=== PATIENT | female | born 1975 | race Two or more races ===

== ENCOUNTER 2019-07-07 11:00 | Emergency (ER) | payer BC ==
[~2019-07-07] VITALS: Ht 157.5 cm; Wt 56.2 kg
[2019-07-07 12:21] LABS: Urine Bacteria FEW /hpf (None Seen); Urine Blood 2+ /uL (Negative); Urine Specific Gravity 1.006 (1.001-1.035); Urine WBC 290 /hpf (0 - 5); Urine WBC Clumps PRESENT /hpf (None Seen)
[2019-07-07 13:00] VITALS: BP 127/78
[2019-07-07] MEDS ORDERED: SODIUM CHLORIDE 0.9% 1,000 ML IV ONE (13:01)
[2019-07-07] MEDS ORDERED: cefTRIAXone 1GM/50ML D5W 50 ML IV ONE (13:15)
[2019-07-07] MEDS ORDERED: KETOROLAC TROMETH 30 MG/ML 1ML VIAL IV ONE (13:15)
== END 2019-07-07 15:22 | disposition home or self-care (01) ==
LOC: EDBD 11:00 → ER 11:00
DX: N12 Tubulo-interstitial nephritis, not specified as acute or chronic (principal); Z90.49 Acquired absence of other specified parts of digestive tract; Z90.710 Acquired absence of both cervix and uterus
CPT/HCPCS: 74176; 81001; 96365; 96375; 99284; J0696; J1885; J7030

== ENCOUNTER 2021-02-03 19:23 | Emergency (ER) | payer BC ==
[~2021-02-03] VITALS: Ht 157.5 cm; Wt 59.9 kg
[2021-02-03 21:05] VITALS: BP 117/75
[2021-02-03] MEDS ORDERED: KETOROLAC TROMETH 60MG/2ML VIAL IM ONE (22:30)
== END 2021-02-03 22:57 | disposition home or self-care (01) ==
LOC: ER 19:23
DX: S16.1XXA Strain of muscle, fascia and tendon at neck level, initial encounter (principal); M54.5 Low back pain; M54.6 Pain in thoracic spine; Z90.49 Acquired absence of other specified parts of digestive tract; Z90.710 Acquired absence of both cervix and uterus; V49.9XXA Car occupant (driver) (passenger) injured in unspecified traffic accident, initial encounter; Y93.89 Activity, other specified; Y92.89 Other specified places as the place of occurrence of the external cause; Y99.8 Other external cause status
CPT/HCPCS: 70450; 72070; 72100; 72125; 96372; 99285; J1885

== ENCOUNTER → 2021-03-06 | Day surgery (SDC) | payer BC ==
[~2021-03-06] VITALS: Ht 157.5 cm; Wt 60.3 kg
[~2021-03-06] MED LIST: BUPIVACAINE 0.25% INJ 50ML VIAL ONE; CONJ ESTROGENS 0.625MG/GM VAG CRM 30GM PV ONE; DexAMETHasone SOD PHOS 10MG/1ML VIAL INJ ONE; ESTR0.3T TD; HYDROmorphone HCL 2 MG/ML VL IV PRN; IBUP800T27 PO; KETOROLAC TROMETH 30 MG/ML 1ML VIAL IV ONE; LABETALOL HCL 5 MG/ML 4ML SYRINGE IV PRN; LIDOCAINE 1%-Mpf/Epinephrine 1:200,000 ONE; MEPERIDINE HCL (50 MG/ML) 1 ML VIAL ONE; MIDAZOLAM HCL 1MG/1ML-2 ML VIAL IV PRN; MIDAZOLAM HCL 1MG/1ML-2 ML VIAL ONE; MORPHINE SULFATE 4 MG/ML SYR/VIAL IV PRN; ONDANSETRON HCL 4 MG/2 ML VIAL IV ONE; ONDANSETRON HCL 4 MG/2 ML VIAL IV PRN; PHENYLEPHRINE HCL 10 MG/ML VL IV ONE; PROPOFOL 10 MG/ML 20 ML IV ONE; ceFAZolin 1GM VL ONE; ceFAZolin 1GM/50ML 100 ML IV ONE; diphenhdrAMINE HCL 50 MG/1 ML VL ONE; ePHEDrine SULFATE 50 MG/ML AMP IV PRN; fentaNYL CITRATE 100 MCG/2 ML VL ONE; hydrALAZINE HCL 20 MG/ML VL IV PRN
[2021-03-06 10:30] VITALS: BP 110/61
== END | disposition home or self-care (01) ==
LOC: SUR 07:29
PROVIDERS: ATTEND Obstetrics & Gynecology
DX: N81.11 Cystocele, midline (principal); G89.29 Other chronic pain; M19.90 Unspecified osteoarthritis, unspecified site; N39.3 Stress incontinence (female) (male); N39.0 Urinary tract infection, site not specified; Z68.24 Body mass index [BMI] 24.0-24.9, adult; Z20.822 Contact with and (suspected) exposure to COVID-19; Z98.890 Other specified postprocedural states; Z90.710 Acquired absence of both cervix and uterus; Z90.49 Acquired absence of other specified parts of digestive tract; Z79.899 Other long term (current) drug therapy
CPT/HCPCS: 57240; 57288; C1771; J0690; J1100; J1200; J2001; J2175; J2250; J2370; J2405; J2704; J3010; J3490; U0003

== ENCOUNTER → 2023-04-29 | Outpatient (CLI) | payer OTHER ==
[~2023-04-29] MED LIST changes: -BUPIVACAINE 0.25% INJ 50ML VIAL ONE; -CONJ ESTROGENS 0.625MG/GM VAG CRM 30GM PV ONE; -DexAMETHasone SOD PHOS 10MG/1ML VIAL INJ ONE; -HYDROmorphone HCL 2 MG/ML VL IV PRN; +IBUP-1456 PO; -IBUP800T27 PO; -KETOROLAC TROMETH 30 MG/ML 1ML VIAL IV ONE; -LABETALOL HCL 5 MG/ML 4ML SYRINGE IV PRN; -LIDOCAINE 1%-Mpf/Epinephrine 1:200,000 ONE; -MEPERIDINE HCL (50 MG/ML) 1 ML VIAL ONE; -MIDAZOLAM HCL 1MG/1ML-2 ML VIAL IV PRN; -MIDAZOLAM HCL 1MG/1ML-2 ML VIAL ONE; -MORPHINE SULFATE 4 MG/ML SYR/VIAL IV PRN; -ONDANSETRON HCL 4 MG/2 ML VIAL IV ONE; -ONDANSETRON HCL 4 MG/2 ML VIAL IV PRN; -PHENYLEPHRINE HCL 10 MG/ML VL IV ONE; -PROPOFOL 10 MG/ML 20 ML IV ONE; -ceFAZolin 1GM VL ONE; -ceFAZolin 1GM/50ML 100 ML IV ONE; -diphenhdrAMINE HCL 50 MG/1 ML VL ONE; -ePHEDrine SULFATE 50 MG/ML AMP IV PRN; -fentaNYL CITRATE 100 MCG/2 ML VL ONE; -hydrALAZINE HCL 20 MG/ML VL IV PRN
[2023-05-02 08:51] LABS: Hepatitis B Surface Antibody Negative (Negative)
== END | disposition home or self-care (01) ==
LOC: LAB 15:51
PROVIDERS: ATTEND Family Medicine
DX: S69.91XA Unspecified injury of right wrist, hand and finger(s), initial encounter (principal); W46.1XXA Contact with contaminated hypodermic needle, initial encounter; Y93.89 Activity, other specified; Y92.89 Other specified places as the place of occurrence of the external cause; Y99.8 Other external cause status
CPT/HCPCS: 86701; 86706; 86803; 87340

== ENCOUNTER → 2023-06-18 | Outpatient (CLI) | payer OTHER ==
[2023-06-20 11:24] LABS: Hepatitis B Surface Antibody Negative (Negative)
[2023-06-20 12:48] LABS: Hepatitis B Surface Antigen Negative (Negative)
== END | disposition home or self-care (01) ==
LOC: LAB 13:35
PROVIDERS: ATTEND Family Medicine
DX: S69.91XA Unspecified injury of right wrist, hand and finger(s), initial encounter (principal); Z77.21 Contact with and (suspected) exposure to potentially hazardous body fluids; X58.XXXA Exposure to other specified factors, initial encounter; Y93.89 Activity, other specified; Y92.89 Other specified places as the place of occurrence of the external cause; Y99.8 Other external cause status
CPT/HCPCS: 36415; 86703; 86706; 86803; 87340

== ENCOUNTER → 2023-07-23 | Outpatient (CLI) | payer OTHER ==
[2023-07-25 11:10] LABS: Hepatitis B Surface Antibody Negative (Negative)
[2023-07-25 11:22] LABS: Hepatitis B Surface Antigen Negative (Negative)
== END | disposition home or self-care (01) ==
LOC: LAB 13:33
PROVIDERS: ATTEND Family Medicine
DX: Z77.21 Contact with and (suspected) exposure to potentially hazardous body fluids (principal)
CPT/HCPCS: 36415; 86703; 86706; 86803; 87340

== ENCOUNTER → 2023-10-28 | Outpatient (CLI) | payer OTHER ==
[2023-10-28 13:19] LABS: Hepatitis B Surface Antibody Negative (Negative)
[2023-10-28 13:31] LABS: Hepatitis B Surface Antigen Negative (Negative)
== END | disposition home or self-care (01) ==
LOC: LAB 11:51
PROVIDERS: ATTEND Family Medicine
DX: Z77.21 Contact with and (suspected) exposure to potentially hazardous body fluids (principal)
CPT/HCPCS: 36415; 86703; 86706; 86803; 87340